=== PATIENT | male | born 1980 | race Two or more races ===

== ENCOUNTER 2019-02-05 20:15 | Emergency (ER) | payer OTHER ==
--- NOTE | 2019-02-05 23:19 | ER Document Report ---
HPI - HPI Patient complains to provider of: bug in ear Time Seen by Provider: 02/05/19 22:24 Onset: Other - 4 days Quality of pain: No pain Pain Level: Denies Context: This 38-year-old male presents the emergency department with complaints of right ear irritation. He reports 4 days ago he was laying in bed when he felt something like a bug going to his ear. He reports it was very itchy. He did try to use a Q-tip to get it out but it did not help. He also used peroxide without relief of symptoms. He reports he cannot hear now. Denies other symptoms such as fever vomiting diarrhea. Denies trauma. Reports this never happened to him before. Associated Symptoms: None Exacerbated by: Denies Relieved by: Denies Similar symptoms previously: No Recently seen / treated by doctor: No Past Medical History - General Information source: Patient - Social History Smoking Status: Unknown if Ever Smoked Cigarette use (# per day): No Frequency of alcohol use: None Drug Abuse: None Lives with: Family Family History: Reviewed & Not Pertinent Patient has suicidal ideation: No Patient has homicidal ideation: No - Medical History Medical History: Negative Surgical Hx: Negative - Immunizations Hx Diphtheria, Pertussis, Tetanus Vaccination: - unknown Vertical Provider Document - CONSTITUTIONAL Agree With Documented VS: Yes Exam Limitations: No Limitations General Appearance: WD/WN, No Apparent Distress - INFECTION CONTROL TRAVEL OUTSIDE OF THE [place] IN LAST 30 DAYS: No - HEENT HEENT: Atraumatic, Normocephalic. negative: Conjuctival Injection, Pharyngeal Exudate, Tympanic Membrane Red, Tympanic Membrane Bulging Notes: impacted wax noted to right ear, ear irrigated with warm water, moderate amount of wax obtained, pt reports he feels much better, he can hear! - NECK Neck: Normal Inspection, Supple. negative: Lymphadenopathy-Left, Lymphadenopathy-Right - RESPIRATORY Respiratory: No Respiratory Distress - CARDIOVASCULAR Cardiovascular: Regular Rate - MUSCULOSKELETAL/EXTREMETIES Musculoskeletal/Extremeties: DULCE SNIDER - NEURO Level of Consciousness: Awake, Alert, Appropriate Motor/Sensory: No Motor Deficit - DERM Integumentary: Warm, Dry Course - Re-evaluation Re-evalutation: 02/05/19 23:27 38-year-old male that presents with complaints of possible bug in his ear. Ear was irrigated with warm water moderate amount of wax was obtained. No erythema no swelling of the canal. TM intact. Patient reports he feels much better and can hear. Patient was instructed to not use peroxide and not to use Q-tips in his ear. If he has any further problems he was instructed to follow-up with his primary care provider or ENT. He verbalized understanding to all instructions. Dictation of this chart was performed using voice recognition software; therefore, there may be some unintended grammatical errors. - Vital Signs Vital signs: Temp Pulse Resp BP Pulse Ox 98.6 F 76 16 130/96 H 98 02/05/19 20:27 02/05/19 20:27 02/05/19 20:27 02/05/19 20:27 02/05/19 20:27 Discharge - Discharge Clinical Impression: Irritation of right ear Condition: Stable Disposition: HOME, SELF-CARE Instructions: Acetaminophen, ENT Additional Instructions: *You have been evaluated for right ear irritation *take tylenol as indicated for pain *Follow-up with your primary care provider within one week for recheck *Return to ED for worsening condition, changes, needs Monitor your blood pressure. Your blood pressure was elevated today. This may be because you were anxious, in pain or because you need medication. It is important to follow up with your primary care provider for full evaluation. Forms: Elevated Blood Pressure
[2019-02-05 23:30] VITALS: BP 122/64
== END 2019-02-05 23:29 | disposition home or self-care (01) ==
LOC: ER 20:15
DX: T16.1XXA Foreign body in right ear, initial encounter (principal); X58.XXXA Exposure to other specified factors, initial encounter
CPT/HCPCS: 99282

== ENCOUNTER → 2020-03-11 | Outpatient (CLI) | payer OTHER ==
--- NOTE | 2020-03-11 09:20 | RADIOLOGY REPORT (SQ) ---
EXAM DESCRIPTION: CT CHEST WITHOUT IMAGES COMPLETED DATE/TIME: 03/11/2020 8:58 am REASON FOR STUDY: COUGH R05 COUGH COMPARISON: None. TECHNIQUE: Prone and supine high resolution technique imaging performed through the lungs windowed f or lung windows. Additional focused imaging through the levels of the aortic arch, lyndsay and diaphr agm. Limited evaluation of the mediastinum. All CT scanners at this facility use dose modulation, iterative reconstruction, and/or weight based d osing when appropriate to reduce radiation dose to as low as reasonably achievable (ALARA). [facility]: Dose Right [facility]: CareDose [facility]: Dose Right [facility]: Teradose 4D [facility]: Serv[employer] Software RADIATION DOSE: CT Rad equipment meets quality standard of care and radiation dose reduction techniq ues were employed. CTDIvol: 2.2 - 17.8 mGy. DLP: 160 mGy-cm. mGy. LIMITATIONS: None. FINDINGS: LUNGS AND PLEURA: No nodules or masses. No infiltrates. No interstitial changes. No per ibronchial cuffing. No ground-glass appearance. No bronchiectasis. No pleural effusions, pleural t hickening, or pleural calcifications. LIMITED MEDIASTINUM: No masses. BONES: No significant findings. OTHER: No other significant finding. IMPRESSION: NEGATIVE HIGH-RESOLUTION CHEST. TECHNICAL DOCUMENTATION: JOB ID: [id number] Quality ID # [id number]: Final reports with documentation of one or more dose reduction techniques (e.g., Au tomated exposure control, adjustment of the mA and/or kV according to patient size, use of iterative reconstruction technique) 2010 [employer]- All Rights Reserved Reading location - IP/workstation name: [email or web address]
== END ==
LOC: RAD 08:38
PROVIDERS: ATTEND Internal Medicine Pulmonary Disease
DX: R05 Cough (principal)
CPT/HCPCS: 71250